=== PATIENT | male | born 1955 | race Caucasian/White ===

== ENCOUNTER → 2025-07-08 06:22 | Outpatient (REF) | payer MEDICARE, OTHER, SELFPAY ==
[2025-07-08 08:59] LABS: Hematocrit 50.2 % (39.0-52.0); Hemoglobin 17.4 g/dL (13.0-18.0); Mean Corp Hgb Conc. 34.7 g/dL (33.0-37.0); Mean Corpuscular Volume 95.8 fL (80.0-94.0); Platelet Count 157 10^3/uL (130-400); Red Cell Dist. Width 14.0 % (11.5-14.5)
[2025-07-08 09:30] LABS: Blood Urea Nitrogen 16 mg/dl (9-20); Calcium 9.4 mg/dl (8.4-10.2); Carbon Dioxide 30 mmol/L (22-30); Chloride 107 mmol/L (98-107); Glucose 98 mg/dl (70-99); Potassium 4.5 mmol/L (3.5-5.1); Sodium 142 mmol/L (135-145); eGFR > 60.00
== END ==
LOC: SDSPAT 06:22
PROVIDERS: ATTENDING PHYSICIAN Surgery; FAMILY PHYSICIAN Family Medicine
DX: Z01.818 Encounter for other preprocedural examination (principal)
CPT/HCPCS: 36415; 71046; 80048; 85027; 93005

== ENCOUNTER 2025-07-18 05:54 | Day surgery (SDC) | payer MEDICARE, OTHER, SELFPAY ==
[2025-07-08 13:57] VITALS: BMI 24.6
--- NOTE | 2025-07-09 15:03 | PTCARENOTE ---
Abnormal ECG done 07/08/[address] Alvarenga, no further intervention requested.
[2025-07-18] VITALS (9 sets, daily range): BP systolic 114–161; BP diastolic 42–81; BMI 24.6
[2025-07-18] MEDS: TYLENOL 1000 MG PO (06:47)
[2025-07-18] MEDS: NORMOSOL-R/PLASMALYTE-A 1000 IV (06:53)
--- NOTE | 2025-07-18 09:51 | SUR.PHASEI ---
Pt reporting epigastric discomfort and chest tightness. Vital signs remain stable, pt denies SOB. Dr. Alvarenga notified and 12 EKG ordered
[2025-07-18] MEDS: MOTRIN 600 MG PO (11:18)
== END 2025-07-18 11:34 | disposition home or self-care (01) ==
LOC: SDS 05:54
PROVIDERS: ATTENDING PHYSICIAN Surgery
DX: K40.90 Unilateral inguinal hernia, without obstruction or gangrene, not specified as recurrent (principal)
CPT/HCPCS: 49650; 93005; C1781